=== PATIENT | female | born 1975 | race Caucasian/White ===

== ENCOUNTER → 2019-05-12 | Outpatient (CLI) | payer BC ==
[~2019-05-12] MED LIST: CHOL500015 PO; [UNRECOGNIZED DRUG - OTHER] PO
[2019-05-12 15:57] LABS: BASOPHILS # (AUTO) 0.04 x10^3/uL (0-0.1); BASOPHILS % (AUTO) 1 % (0-1); EOSINOPHILS % (AUTO) 3 % (1-7); LYMPHOCYTES # (AUTO) 1.35 x10^3/uL (1-3.4); LYMPHOCYTES % (AUTO) 20 % (22-44); MD NO; MEAN CORPUSCULAR HEMOGLOBIN 30.4 pg (27.0-34.8); MEAN CORPUSCULAR HGB CONC 33.6 g/dL (32.4-35.8); MEAN CORPUSCULAR VOLUME 90.4 fL (80-100); MEAN PLATELET VOLUME 8.2 fL (7.4-10.4); MONOCYTES # (AUTO) 0.59 x10^3/uL (0.2-0.8); MONOCYTES % (AUTO) 9 % (2-9); NEUTROPHILS # (AUTO) 4.45 x10^3/uL (1.8-6.8); NEUTROPHILS % (AUTO) 67 % (42-75); PLATELET COUNT 267 x10^3/uL (130-400); RED BLOOD COUNT 4.19 x10^6/uL (3.82-5.3); RED CELL DISTRIBUTION WIDTH 12.4 % (9.6-15.2)
[2019-05-12 16:02] LABS: CULTURE INDICATED? YES; HCG UR SG 1.028 (1.003-1.030); MICROSCOPIC AUTO
== END | disposition home or self-care (01) ==
LOC: STAR 15:04
PROVIDERS: ATTEND Obstetrics & Gynecology
DX: Z30.2 Encounter for sterilization (principal)
CPT/HCPCS: 36415; 81001; 81025; 85025; 87086

== ENCOUNTER 2019-05-21 05:45 | Day surgery (SDC) | payer BC ==
[2019-05-12 15:25] VITALS: BP 107/68
[~2019-05-21] VITALS: Ht 162.6 cm; Wt 80.4 kg
[2019-05-21] MEDS ORDERED: LACTATED RINGERS 1,000 ML IV SCH (06:34)
[2019-05-21] MEDS ORDERED: EPINEPHRINE 1 MG/ML, 1ML ONE (06:53)
[2019-05-21] MEDS ORDERED: SILVER NITRATE STICK TP ONE (06:53)
[2019-05-21] MEDS ORDERED: BUPIVACAINE/PF 0.25% ONE (06:53)
[2019-05-21] MEDS ORDERED: ACETAMINOPHEN 500 MG TABLET PO ONE (07:00)
[2019-05-21] MEDS ORDERED: GABAPENTIN 300 MG CAPSULE PO ONE (07:00)
[2019-05-21] MEDS ORDERED: FENTANYL PF 250 MCG/5ML ONE (07:12)
[2019-05-21] MEDS ORDERED: MIDAZOLAM 1 MG/ML, 2ML ONE (07:12)
[2019-05-21] MEDS ORDERED: PROPOFOL 10 MG/ML, 20ML ONE (07:16)
[2019-05-21] MEDS ORDERED: ROCURONIUM 10MG/ML,5ML ONE (07:16)
[2019-05-21 07:22] LABS: HCG UR SG 1.026 (1.003-1.030)
[2019-05-21] MEDS ORDERED: hydrALAzine 20 MG/ML, 1ML IV PRN (07:30)
[2019-05-21] MEDS ORDERED: OXYcodone 5 MG/5 ML ORAL.SOL UDC PO PRN (07:30)
[2019-05-21] MEDS ORDERED: LABETALOL 5MG/ML, 20ML IV PRN (07:30)
[2019-05-21] MEDS ORDERED: MEPERIDINE/PF 25MG/0.5ML IVPush PRN (07:30)
[2019-05-21] MEDS ORDERED: PROMETHAZINE 25 MG/ML, 1ML IV PRN (07:30)
[2019-05-21] MEDS ORDERED: FENTANYL PF 100 MCG/2ML IV PRN (07:30)
[2019-05-21] MEDS ORDERED: ONDANSETRON 2MG/ML, 2ML IV PRN (07:30)
[2019-05-21] MEDS ORDERED: HYDROmorphone 2 MG/ML, 1ML IVPush PRN (07:30)
[2019-05-21] MEDS ORDERED: DEXAMETHASONE 4 MG/ML, 1ML ONE ×2 (07:33)
[2019-05-21] MEDS ORDERED: CEFAZOLIN 1,000 MG ONE (07:36)
[2019-05-21] MEDS ORDERED: ONDANSETRON 2MG/ML, 2ML ONE (07:40)
[2019-05-21] MEDS ORDERED: OXYcodone 5 MG/5 ML ORAL.SOL UDC ONE (08:59)
[2019-05-21] MEDS ORDERED: FENTANYL PF 100 MCG/2ML ONE (08:59)
== END 2019-05-21 10:50 | disposition home or self-care (01) ==
LOC: OUT 05:45
PROVIDERS: ATTEND Obstetrics & Gynecology
DX: Z30.2 Encounter for sterilization (principal); Z30.46 Encounter for surveillance of implantable subdermal contraceptive; D27.1 Benign neoplasm of left ovary; Z72.89 Other problems related to lifestyle; Z79.899 Other long term (current) drug therapy; Z83.3 Family history of diabetes mellitus; Z80.0 Family history of malignant neoplasm of digestive organs; Z80.49 Family history of malignant neoplasm of other genital organs
CPT/HCPCS: 11982; 58662; 58670; 81025; 88302; 88305; J0171; J0690; J1100; J2250; J2405; J2704; J3010; J3490; J7120